=== PATIENT | female | born 1985 | race Caucasian/White ===

== ENCOUNTER 2024-08-23 09:32 | Emergency (ER) | payer BC, SELFPAY ==
[2024-08-23 09:37] VITALS: BP 139/98
[2024-08-23 10:21] VITALS: BMI 41.2
--- NOTE | 2024-08-23 10:27 | ED.GENMED ---
History of Present Illness
General
Chief Complaint: Abdominal Pain
Source: patient
Exam Limitations: none
Time Seen by Provider: 08/23/24 10:12
History of Present Illness
History of Present Illness:
39yoF with a history of hyperlipidemia, obesity, gastroparesis, IBS, and anxiety presenting for evaluation of abdominal pain. Patient was playing video games earlier this morning. She started to experience a sharp pain in her epigastric region
around 4:30 AM. Pain has been constant since it began. Pain is nonradiating. Pain improves if she puts pressure on her upper abdomen. She had similar symptoms about 7 years ago when she was initially diagnosed with gastroparesis and IBS. She is
also experiencing nausea but has not had any vomiting. She took 8 mg Zofran at home this morning without any relief. She had a small piece of pizza for dinner last night. She is otherwise asymptomatic and denies any fevers, chest pain, shortness
of breath, diarrhea, constipation, difficulty urinating. No previous abdominal surgeries. Patient is currently maintained on gabapentin, famotidine PRN, and Zofran PRN for her gastroparesis. She no longer sees gastroenterology because her
symptoms have been under control for a long time.
Phy Exam
Physical Exam
Physical Exam:
Appears uncomfortable, non-toxic
General Physical Exam
General Presentation: well appearing
General Skin: warm and dry
General Habitus: normal
General Mental: alert
ENT Exam
ENT Exam: normocephalic
Cardiovascular Exam
Cardiovascular Exam: regular rate/rhythm and no murmur
Pulmonary Exam
Pulmonary Exam: lungs clear, no respiratory distress, no rales, no crackles, no rhonchi and no wheezing
Gastrointestinal Exam
Gastrointestinal Exam: soft, non distended and other (+Tenderness in epigastrium and RUQ. Abdomen soft, non-distended. No rebound or guarding. Negative Al's sign. )
Neurological Exam
Neurological Exam: alert
Ed Coma Scale
Eye Opening: Spontaneous
Verbal Response: Oriented
Motor Response: Obeys Commands
GCS Total Score: 15
Skin Exam
Skin Exam: normal color and warm/dry
Psychiatric Exam
Psychiatric Exam: normal mood/affect
Course
Orders/Labs/Results
Orders:
Orders
08/23/24 10:25
0.9% Sodium Chloride 1000 ml [Nss] 1,000 ml IV BOLUS
Famotidine [Pepcid] 20 mg IV NOW STA
HYDROmorphone [Dilaudid] 0.5 mg IV NOW STA
Ketorolac [Toradol] 15 mg IV NOW STA
US Abdomen Complete/Upper Urgent
Comment:
Reason For Exam: epigastric pain
08/23/24 10:26
Electrocardiogram (*1) Urgent
Reason for Study: Abdominal Pain
EKG- Treatment ONCE
08/23/24 10:34
Complete Blood Count/With Diff Urgent
Comprehensive Metabolic Panel Urgent
HCG, Serum Qualitative Screen Urgent
Comment: ADD
Lipase Urgent
Troponin I Urgent
08/23/24 10:51
Add On- LAB Urgent
Tests Added?: HCG
08/23/24 12:47
CT Abd/pelvis W Iv Cont Urgent
Comment:
Reason For Exam: epigastric pain
Dicyclomine [Bentyl] 20 mg PO NOW STA
Ketorolac [Toradol] 15 mg IV NOW STA
Abnormal Lab Results
08/23/24
10:34
WBC 13.2 H 10^3/uL
(4.8-10.8)
Absolute Neuts (auto) 11.7 H 10^3/uL
(1.4-6.5)
Absolute Lymphs (auto) 1.1 L 10^3/uL
(1.2-3.4)
Neutrophils % 88.7 H %
(42.2-75.2)
Lymphocytes % 7.9 L %
(20.5-51.1)
Glucose 106 H mg/dl
(70-99)
08/23/24 10:34
08/23/24 10:34
Vital Signs
Initial and Last Documented VS:
Initial Vital Signs
Temp Pulse Resp BP Pulse Ox
98.3 F 112 16 139/98 97
08/23/24 09:37 08/23/24 09:37 08/23/24 09:37 08/23/24 09:37 08/23/24 09:37
Last Documented Vital Signs
Temp Pulse Resp BP Pulse Ox
98.3 F 112 16 127/90 96
08/23/24 09:37 08/23/24 09:37 08/23/24 09:37 08/23/24 13:23 08/23/24 13:30
MDM/Problems Addressed
Differential Diagnosis Includes:
39yoF here with epigastric pain that started this morning. Also having nausea. No CP/SOB. Hx of gastroparesis and IBS. She appears uncomfortable but is non-toxic. No signs of peritonitis on abdominal exam and Al's sign is negative. Differential
diagnosis includes but is not limited to: pancreatitis, gastritis, PUD, biliary colic
Initial ED plan: Check abdominal labs, troponin/EKG, and upper abdominal ultrasound. IV Dilaudid, Toradol, and fluid bolus for symptoms.
*EKG
Interpreted by ED Provider?: Yes
EKG Intrepretation Date: 08/23/24
Heart Rate: 96
Rate: normal
Rhythm: sinus
[place]: normal axis
Interval: normal interval
QRS Pattern: normal QRS
Ischemia: no ischemia
*Critical Care Note
Total Time (30-74mins, 75-104mins- exclusive of procedures): Not Applicable
Update Note
Update Note:
Labs reveal a leukocytosis with a white count of 13.2 which is nonspecific. Remainder of labs unremarkable including normal LFTs and lipase. Ultrasound is negative for acute findings other than suspected gallbladder sludge. No cholelithiasis or
signs of cholecystitis. CT abdomen added which does not show any findings to explain her pain. There are several incidental findings including ovarian cysts which she has a known history of. Patient is feeling improved on reassessment. No
indication for hospitalization at this time. Prescription provided for Protonix and Bentyl as she has been on these medications previously. She was advised to follow-up with gastroenterology. ED return precautions discussed. Patient in agreement
with plan and was discharged in stable condition.
ED Attending Note
-
Portions of this chart may have been created with voice recognition software.� Occasional wrong word or��sound alike� substitutions may have occurred due to the inherent limitations of voice recognition software.
Discharge Plan
Departure
Patient Disposition: Home (Routine Discharge)
Date of Disposition: 08/23/24
Time of Disposition: 13:45
Patient with high blood pressure during this ER visit?: No
Discharge Problem:
Epigastric pain
Instructions: Abdominal Pain
Prescriptions:
New
pantoprazole [Protonix] 40 mg tablet,delayed release (DR/EC)
40 mg PO DAILY Qty: 30 0RF
dicyclomine 20 mg tablet
20 mg PO Q6 PRN (Reason: abdominal cramping) Qty: 20 0RF
Referrals:
Korin Guevara, DO [Active] -
UNKNOWN - PT DOES,NOT KNOW [Family Provider] -
Activity Restrictions/Additional Instructions:
Take Protonix as prescribed. Take Bentyl as needed for abdominal cramping. Continue taking Zofran and famotidine as needed.
Please call today to schedule follow-up with gastroenterology. Return to the ER with any new or worsening symptoms.
Interventions
Interventions:
*Risk Screen - Suicide Last Done: 08/23/24 09:37
*General Assessment Last Done: 08/23/24 10:21
*Neglect/Abuse Screening Last Done: 08/23/24 09:37
*ED- Fall Risk Assessment Last Done: 08/23/24 10:21
*ED COVID-19 Vaccine History Last Done: 08/23/24 10:21
*Nursing Disposition Last Done: 08/23/24 13:56
MZ-Fqgelg-Fnufbtjahi Assessment Last Done: 08/23/24 10:21
Discharge Date and Time
Discharge Date/Time: 08/23/24 13:56
Print Language: HUNGARIAN
[2024-08-23] MEDS: DILAUDID 0.5 MG IV (10:40)
[2024-08-23] MEDS: NSS 1000 IV (10:40)
[2024-08-23] MEDS: PEPCID 20 MG IV (10:40)
[2024-08-23] MEDS: TORADOL 15 MG IV ×2 (10:41→12:53)
[2024-08-23 10:42] LABS: % Basophils 0.6 % (0-2); % Eosinophils 0.1 % (0-6); % Immature Granulocytes 0.3 % (0-0.5); % Lymphocytes 7.9 % (20.5-51.1); % Monocytes 2.4 % (1.7-9.3); % Neutrophils 88.7 % (42.2-75.2); Absolute Basophils 0.1 10^3/uL (0-0.2); Absolute Lymphocytes 1.1 10^3/uL (1.2-3.4); Absolute Monocytes 0.3 10^3/uL (0.1-0.6); Absolute Neutrophils 11.7 10^3/uL (1.4-6.5); Hemoglobin 13.3 g/dL (12.0-16.0); Mean Corpuscular Hgb 30.3 pg (27.0-31.0); Mean Corpuscular Volume 86.6 fL (81.0-99.0); Mean Platelet Volume 9.3 fL (7.4-10.4); Nucleated Red Blood Cells % 0 %; Platelet Count 336 10^3/uL (130-400); Red Blood Cell Count 4.39 10^6/uL (4.20-5.40); Red Cell Dist. Width 12.3 % (11.5-14.5); White Blood Cell Count 13.2 10^3/uL (4.8-10.8)
[2024-08-23 10:46] VITALS: BP 122/76
[2024-08-23 10:53] LABS: AST (SGOT) 29 U/L (14-36); Albumin 4.6 g/dl (3.5-5.0); Alkaline Phosphatase 62 U/L (38-126); Blood Urea Nitrogen 8 mg/dl (7-17); Calcium 9.7 mg/dl (8.4-10.2); Carbon Dioxide 22 mmol/L (22-30); Chloride 105 mmol/L (98-107); Estimated Creatinine Clearance > 125 ml/min; Glucose 106 mg/dl (70-99); Lipase 194 U/L (23-300); Potassium 3.8 mmol/L (3.5-5.1); Sodium 140 mmol/L (135-145); Total Bilirubin 1.3 mg/dl (0.2-1.3); Total Protein 7.6 g/dl (6.3-8.2); eGFR > 60.00
[2024-08-23 11:00] VITALS: BP 123/78
[2024-08-23 11:04] LABS: Troponin I < 0.012 ng/ml
[2024-08-23 11:08] LABS: ALT (SGPT) < 30 U/L (0-35)
[2024-08-23 12:22] LABS: HCG, Serum Qualitative Screen Negative
[2024-08-23] MEDS: BENTYL 20 MG PO (12:52)
[2024-08-23 12:54] VITALS: BP 129/83
[2024-08-23 13:23] VITALS: BP 127/90
== END 2024-08-23 13:56 | disposition home or self-care (01) ==
LOC: EMR 09:32
PROVIDERS: Physician Assistant; EMERGENCY PHYSICIAN Emergency Medicine
DX: R10.13 Epigastric pain (principal); R11.10 Vomiting, unspecified; K82.8 Other specified diseases of gallbladder; E78.5 Hyperlipidemia, unspecified; K58.9 Irritable bowel syndrome, unspecified; K31.84 Gastroparesis
CPT/HCPCS: 96374; 96375; 96376; 96361; 99284; 74177; 76700; 80053; 83690; 84484; 84703; 85025; 93005; Q9967

== ENCOUNTER 2025-01-12 00:02 | Emergency (ER) | payer BC, SELFPAY ==
[2025-01-12 00:04] VITALS: BP 144/105
[2025-01-12 01:08] VITALS: BMI 36.0
[2025-01-12] MEDS: TORADOL 30 MG IV (01:09)
[2025-01-12] MEDS: NSS 1000 IV (01:10)
[2025-01-12] MEDS: PROTONIX IV 40 MG IV (01:10)
[2025-01-12 01:17] LABS: Hematocrit 38.5 % (37.0-47.0); Hemoglobin 13.2 g/dL (12.0-16.0); Mean Corp Hgb Conc. 34.3 g/dL (33.0-37.0); Mean Corpuscular Volume 87.1 fL (81.0-99.0); Nucleated Red Blood Cells % 0 %; Platelet Count 339 10^3/uL (130-400); Red Cell Dist. Width 12.2 % (11.5-14.5)
[2025-01-12 01:31] LABS: HCG, Serum Qualitative Screen Negative
[2025-01-12 01:35] LABS: ALT (SGPT) 35 U/L (0-35); AST (SGOT) 28 U/L (14-36); Albumin 4.9 g/dl (3.5-5.0); Alkaline Phosphatase 64 U/L (38-126); Blood Urea Nitrogen 7 mg/dl (7-17); Calcium 10.1 mg/dl (8.4-10.2); Carbon Dioxide 26 mmol/L (22-30); Chloride 104 mmol/L (98-107); Estimated Creatinine Clearance > 125 ml/min; Glucose 97 mg/dl (70-99); Lipase 200 U/L (23-300); Potassium 4.1 mmol/L (3.5-5.1); Sodium 138 mmol/L (135-145); Total Protein 7.5 g/dl (6.3-8.2); eGFR > 60.00
[2025-01-12 02:00] VITALS: BP 149/96
--- NOTE | 2025-01-12 02:18 | ED.GENMED ---
History of Present Illness
General
Chief Complaint: Abdominal Pain
Source: patient, previous radiology exam (CT abdomen pelvis as well as abdominal ultrasound showing layering sludge balls in the gallbladder but no cholecystitis.) and previous hospital records (ED visit for similar complaint August of this year.)
Exam Limitations: none
Time Seen by Provider: 01/12/25 00:27
Nursing documentation reviewed up to this point in time: agreed with
History of Present Illness
History of Present Illness:
This is a 39-year-old woman with history of gastroparesis, irritable bowel syndrome, anxiety, hyperlipidemia, obesity.
She is presenting with epigastric abdominal pain and nausea that began around 10:30 to 11:00 PM tonight. She describes the current symptoms as similar to a previous episode in August of this year for which she presented to this ED. Underwent overall
unremarkable laboratory studies, CT of the abdomen and pelvis as well as abdominal ultrasound both showing sludge balls within the gallbladder but no evidence of cholecystitis. Concern for biliary colic versus exacerbation of gastroparesis. The
patient reports experiencing flares of symptoms over the last few months. Since last ED visit here in August she has had several ED visits at home in [place] for similar complaints. She states imaging did show gallstones. She plans to follow-up
with GI at home in [place] and has an appointment scheduled in a few months time. She admits that she has been having more difficulty scheduling appointment with gastroenterology. She admits to nausea but has had no vomiting. She took a dose
of Zofran 8 mg at home with relief of nausea. She has been attempting to maintain a bland diet but tonight admits to eating a taco with cheese. The patient is also on pantoprazole every morning and reports irregular menstrual cycles. She denies
risk of . She denies significant changes in weight and reports occasional diarrhea which is not unusual for her. She uses medical marijuana intermittently for symptom management. Currently staying with her sister locally. As such has not
been using her marijuana as her sister has small children.
She denies alcohol use.
Her medications include: Gabapentin, pantoprazole, as needed Zofran, as needed famotidine.
Past History
Past History
ED Past Medical History: Psychiatric (Anxiety) and Other (Gastroparesis, irritable bowel syndrome, gallstones)
ED Past Surgical History: None
Social History
Tobacco: Non-smoker
Alcohol: None
Drug: Marijuana
Personal: Single
Living: alone
Employment: Not employed
Family History
Family History: Other (Noncontributory)
Phy Exam
Physical Exam
Physical Exam:
GENERAL: 39-year-old woman appears her stated age, awake and alert, appears mildly uncomfortable. Frequently pressing and holding her epigastric region.
EYE: anicteric
NECK: Supple, nontender, no meningismus, no significant adenopathy.
ENT: oral mucosa is moist. No rhinorrhea.
CARDIAC: Regular rate and rhythm. no murmur.
LUNGS: Clear breath sounds bilaterally, no acute respiratory distress, no wheezes/rales/rhonchi
ABDOMEN: Soft, nondistended, mild tenderness epigastric region, no r/g, no cvat. normoactive BS. No palpable masses.
NEUROLOGICAL: Alert and oriented x3, no focal neuro deficits. Gait is steady.
SKIN: Warm and dry, normal color, skin intact. No rash.
MUSCULOSKELETAL: No C/C/E. peripheral pulses are full and equal b/l. No palpable tenderness.
PSYCH: Normal and appropriate interaction.
Course
Orders/Labs/Results
Orders:
Orders
01/12/25 00:42
0.9% Sodium Chloride 1000 ml [Nss] 1,000 ml IV BOLUS
Ketorolac [Toradol] 30 mg IV NOW STA
Pantoprazole [Protonix IV] 40 mg IV NOW STA
01/12/25 00:43
Test Result ONCE
01/12/25 01:02
Complete Blood Count/With Diff Urgent
Comprehensive Metabolic Panel Urgent
HCG, Serum Qualitative Screen Urgent
Lactic Acid Urgent
Lipase Urgent
01/12/25 02:34
Ondansetron Injectable [Zofran] 4 mg IV NOW STA
Sucralfate [Carafate] 1 gram PO NOW STA
01/12/25 03:38
Electrocardiogram (*1) Urgent
Reason for Study: Tachycardia
EKG- Treatment ONCE
HYDROmorphone [Dilaudid] 0.5 mg .ROUTE .STK-MED ONE
01/12/25 03:40
Dicyclomine HCl [Bentyl] 20 mg IM NOW STA
HYDROmorphone [Dilaudid] 0.5 mg IV NOW STA
Abnormal Lab Results
01/12/25
01:02
Absolute Monos (auto) 0.8 H 10^3/uL
(0.1-0.6)
01/12/25 01:02
01/12/25 01:02
Vital Signs
Initial and Last Documented VS:
Initial Vital Signs
Temp Pulse Resp BP Pulse Ox
97.8 F 126 28 144/105 96
01/12/25 00:04 01/12/25 00:04 01/12/25 00:04 01/12/25 00:04 01/12/25 00:04
Last Documented Vital Signs
Temp Pulse Resp BP Pulse Ox
98.3 F 126 28 136/86 98
01/12/25 01:08 01/12/25 00:04 01/12/25 00:04 01/12/25 04:00 01/12/25 04:00
MDM/Problems Addressed
Differential Diagnosis Includes:
The Differential Diagnosis includes, in no particular order and is not limited to:
1. Gastroparesis exacerbation
2. Biliary colic
3. Gallstones
4. Cholecystitis
5. Peptic ulcer disease
6. Gastroesophageal reflux disease (GERD)
7. Pancreatitis
8. Small bowel obstruction
9. Functional dyspepsia
10. Irritable bowel syndrome (IBS)
MDM/Problems Addressed:
Acute epigastric abdominal pain, nausea
Will check labs and initiate IV fluids. Will give an IV dose of Protonix as well as an IV dose of Toradol.
Patient hopes to avoid narcotic pain medication.
Has had similar episodes in the past with imaging here including CT abdomen pelvis and abdominal ultrasound as well as reported imaging at ER closer to home in [place].
At this point we will hold off on repeated imaging and await laboratory studies and reevaluation after medications.
Nothing to suggest ACS and previous cardiac evaluations have been negative.
Chronic conditions affecting care:
History of IBS, gastroparesis, known gallbladder sludge/stones.
*Pulse Oximetry
SaO2: 96
Patient hypoxic: no
*EKG
Interpreted by ED Provider?: Yes
Comparison EKG: changes noted (Heart rate has increased from 96 to now 118 compared to previous EKG August 23, 2024.)
Rate: tachycardiac
Rhythm: sinus
[place]: normal axis
Interval: normal interval
QRS Pattern: normal QRS
Ischemia: no ischemia
*Director Occupational Interpretation
Rate: normal
Interpretation: normal
Rhythm: sinus
*Critical Care Note
Total Time (30-74mins, 75-104mins- exclusive of procedures): Not Applicable
Update Note
Update Note:
02:30
Labs are all unremarkable. Normal lactic acid. Normal chemistries. Normal CBC.
Patient feeling improved after IV fluids, Protonix and Toradol. Continues with mild epigastric pain and now nausea is returning without vomiting.
Will give an IV dose of Zofran and will trial an oral dose of Carafate.
03:35
Patient had been feeling improved but now with abrupt return of severe epigastric pain associated with nausea without vomiting, anxiousness, tachycardia, hypertension. She continues to deny back pain or chest pain.
EKG shows sinus tachycardia otherwise unremarkable.
Abdomen with mild tenderness epigastric region without rebound or guarding. She notes similar episodes sporadically over the past several months. Attempting to limit her diet.
Will trial an IV dose of Dilaudid, consider an IM dose of Bentyl.
If no improvement will plan for CT abdomen pelvis.
05:45
Pain has promptly resolved, sleeps when undisturbed after IV Dilaudid. Has not required Bentyl.
Abdomen is soft without appreciable tenderness. She continues to intermittently hold her left upper quadrant but overall abdomen is soft without appreciable tenderness.
Ultimately patient will require follow-up with GI.
She has had extensive unremarkable workup in the past including unremarkable CT save for biliary sludge without evidence of cholecystitis. With pain primarily left upper quadrant, I am not convinced that this is biliary colic.
She has done well in the past with as needed Bentyl and this has been refilled.
Recommend continuing daily Protonix.
Recommend limiting diet to clear liquids today, slowly advance to soft bland foods as tolerated.
Return precautions discussed.
ED Attending Note
-
Portions of this chart may have been created with voice recognition software.� Occasional wrong word or��sound alike� substitutions may have occurred due to the inherent limitations of voice recognition software.
Discharge Plan
Departure
Patient Disposition: Home (Routine Discharge)
Date of Disposition: 01/12/25
Time of Disposition: 05:38
Patient with high blood pressure during this ER visit?: No
Condition: Good
Discharge Problem:
Exacerbation of gastroparesis, Recurrent upper abdominal pain
Instructions: Clear Liquid Diet, Gastroparesis (delayed gastric emptying), Abdominal Pain
Prescriptions:
New
dicyclomine 20 mg tablet
20 mg PO QID PRN (Reason: abdominal pain) Qty: 30 1RF
No Action
pantoprazole [Protonix] 40 mg tablet,delayed release (DR/EC)
40 mg PO DAILY Qty: 30 0RF
dicyclomine 20 mg tablet
20 mg PO Q6 PRN (Reason: abdominal cramping) Qty: 20 0RF
Referrals:
[facility] [Other] - Call in 1-3 days for appt
Interventions
Interventions:
*Risk Screen - Suicide Last Done: 01/12/25 03:29
*General Assessment Last Done: 01/12/25 03:29
*Neglect/Abuse Screening Last Done: 01/12/25 03:29
*ED- Fall Risk Assessment Last Done: 01/12/25 03:29
*ED COVID-19 Vaccine History Last Done: 01/12/25 03:29
Discharge Date and Time
Print Language: STATELESS
[2025-01-12] MEDS: ZOFRAN 4 MG IV (02:45)
[2025-01-12] MEDS: CARAFATE 1 GRAM PO (02:46)
[2025-01-12 03:00] VITALS: BP 169/107
[2025-01-12 03:32] VITALS: BP 173/118
[2025-01-12] MEDS: DILAUDID 0.5 MG IV (03:40)
[2025-01-12 04:00] VITALS: BP 136/86
[2025-01-12 05:00] VITALS: BP 135/98
== END 2025-01-12 06:12 | disposition home or self-care (01) ==
LOC: EMR 00:02
PROVIDERS: EMERGENCY PHYSICIAN Emergency Medicine
DX: K31.84 Gastroparesis (principal); R00.0 Tachycardia, unspecified; E78.5 Hyperlipidemia, unspecified; E66.9 Obesity, unspecified; Z68.36 Body mass index [BMI] 36.0-36.9, adult; K58.9 Irritable bowel syndrome, unspecified; F41.9 Anxiety disorder, unspecified; K80.20 Calculus of gallbladder without cholecystitis without obstruction
CPT/HCPCS: 99284; 96374; 96375 ×3; 96361; 96372; 80053; 83605; 83690; 84703; 85025; 93005